=== PATIENT | female | born 1975 | race African-American/Black ===

== ENCOUNTER 2022-06-19 10:17 | Emergency (ER) | payer OTHER ==
[~2022-06-19] VITALS: Ht 170.2 cm; Wt 75.0 kg
[2022-06-19 10:32] VITALS: BP 127/103
[2022-06-19 10:35] VITALS: BP 117/83
[2022-06-19 10:45] VITALS: BP 119/79
[2022-06-19 11:00] VITALS: BP 133/85
[2022-06-19 11:15] VITALS: BP 133/85
[2022-06-19] MEDS ORDERED: OXYCODONE10 M1 PO ×2 (11:26→12:22)
[2022-06-19] MEDS ORDERED: ATIVAN0.5 MG PO (11:26)
[2022-06-19] MEDS ORDERED: ALPRAZOLAM1 MG PO (11:35)
== END 2022-06-19 11:35 | disposition home or self-care (01) ==
LOC: ED 10:17
DX: G89.29 Other chronic pain (principal); F41.9 Anxiety disorder, unspecified

== ENCOUNTER 2022-07-15 07:37 | Emergency (ER) | payer OTHER ==
[~2022-07-15] VITALS: Ht 170.2 cm; Wt 77.0 kg
[2022-07-15] VITALS (7 sets, daily range): BP systolic 105–149; BP diastolic 74–98
[~2022-07-15 07:37] MED LIST: ALPRAZOLAM1 MG PO; ATIVAN0.5 MG PO; OXYCODONE10 M1 PO
[2022-07-15 08:36] LABS: ALKALINE PHOSPHATASE 83 u/l (38-126); ANION GAP 17 (6-22 (CALC)); BILIRUBIN, TOTAL 0.2 mg/dL (0.0-1.4); BUN 12 mg/dL (7-17); BUN/CREATININE RATIO 12 (12-20 (CALC)); CARBON DIOXIDE 24 mmol/l (22-30); CHLORIDE 107 mmol/l (95-108); GFR FOR AFR.AMER. > 60 ML/MIN (>=60 (CALC)); GFR OTHER RACES 60 ML/MIN (>=60 (CALC)); LIPASE 41 u/l (23-300); POTASSIUM 3.8 mmol/l (3.5-5.1); SGOT/AST 22 u/l (14-36); SODIUM 144 mmol/l (137-146)
[2022-07-15 08:37] LABS: HEMOGLOBIN 10.5 g/dl (12.0-16.0); IMMATURE GRANULOCYTES 0.2 % (0.0-5.0); MEAN CELL VOLUME 91.4 fL CALC (80.0-100.0); MEAN CORPUSCULAR HGB 29.1 pG CALC (26.0-32.0); MEAN CORPUSCULAR HGB CONC 31.8 g/dL CAL (32.0-36.0); NEUT# 2.41 thou/uL (2.00-7.15); RED BLOOD COUNT 3.61 mill/uL (4.20-5.60); RED CELL DISTRI WIDTH 12.8 % (11.5-15.5)
== END 2022-07-15 10:13 | disposition home or self-care (01) ==
LOC: ED 07:37
PROVIDERS: Family Medicine
DX: M71.22 Synovial cyst of popliteal space [Baker], left knee (principal); F41.9 Anxiety disorder, unspecified; F32.A Depression, unspecified; Z85.89 Personal history of malignant neoplasm of other organs and systems; Z89.411 Acquired absence of right great toe; Z88.8 Allergy status to other drugs, medicaments and biological substances; Z20.822 Contact with and (suspected) exposure to COVID-19